=== PATIENT | female | born 1990 | race Two or more races ===

== ENCOUNTER 2016-11-28 01:34 | Inpatient (IN) | payer OTHER ==
[2016-11-28] VITALS (19 sets, daily range): BP systolic 102–129; BP diastolic 56–84
[~2016-11-28] VITALS: Ht 160 cm; Wt 98.0 kg
[~2016-11-28 01:34] MED LIST: MOTRIN800 MG PO
[2016-11-28] MEDS ORDERED: PRENATAL TABLE1 EAC3 PO (02:35)
[2016-11-28 02:50] LABS: EOSINOPHIL (%) 0.2 % (0-5); HEMATOCRIT 40.4 % (36.0-46.0); IMMATURE GRANULOCYTE (%) 1.1 % (0.0-0.7); IMMATURE GRANULOCYTE COUNT 0.2 K/uL; INSTRUMENT ABS NEUTROPHIL CT 14.5 K/uL; LYMPHOCYTE COUNT 1.6 K/uL (1.0-2.8); MCH 29.8 PG (29.0-34.0); MCHC 33.9 G/DL (30.0-36.0); MEAN PLAT.VOLUME 9.4 uM^3 (9.5-12.4); MONOCYTE (%) 5.8 % (3-12); NEUTROPHIL (%) 83.7 % (45-76); NEUTROPHIL COUNT 14.5 K/uL (1.8-6.4); PLATELET COUNT 255 K/uL (156-360); RBC DIS.WIDTH-CV 12.7 % (11.8-14.6); RBC DIS.WIDTH-SD 41.2 % (39-53); RED BLOOD COUNT 4.59 M/uL (3.80-5.20); WHITE BLOOD COUNT 17.3 K/uL (4.1-10.2)
[2016-11-29 07:57] LABS: BASOPHIL COUNT 0.1 K/uL (0-0.1); EOSINOPHIL (%) 1.8 % (0-5); EOSINOPHIL COUNT 0.2 K/uL (0-0.3); HEMATOCRIT 35.8 % (36.0-46.0); IMMATURE GRANULOCYTE (%) 1.2 % (0.0-0.7); IMMATURE GRANULOCYTE COUNT 0.1 K/uL; INSTRUMENT ABS NEUTROPHIL CT 8.7 K/uL; LYMPHOCYTE COUNT 2.1 K/uL (1.0-2.8); MCH 30.4 PG (29.0-34.0); MCHC 33.2 G/DL (30.0-36.0); MCV 91.3 FL (83-99); MEAN PLAT.VOLUME 9.1 uM^3 (9.5-12.4); MONOCYTE (%) 7.6 % (3-12); MONOCYTE COUNT 0.9 K/uL (0-0.8); NEUTROPHIL (%) 71.3 % (45-76); NEUTROPHIL COUNT 8.7 K/uL (1.8-6.4); PLATELET COUNT 241 K/uL (156-360); RBC DIS.WIDTH-CV 13.1 % (11.8-14.6); RBC DIS.WIDTH-SD 43.4 % (39-53); RED BLOOD COUNT 3.92 M/uL (3.80-5.20)
[2016-11-29 07:59] LABS: WHITE BLOOD COUNT 12.1 K/uL (4.1-10.2)
[2016-11-29 15:17] VITALS: BP 120/65
== END 2016-11-29 17:05 | disposition home or self-care (01) | DRG 774 ==
LOC: LDRP-OP 01:34 → 2WEST 01:35 → LDRP-OP 12-30 09:47
PROVIDERS: Advanced Practice Midwife
PROC: 10907ZC Drainage of Amniotic Fluid, Therapeutic from Products of Conception, Via Natural or Artificial Opening (ICD-10-PCS; principal; 2016-11-28)
PROC: 10E0XZZ Delivery of Products of Conception, External Approach (ICD-10-PCS; principal; 2016-11-28)
PROC: 3E0R3CZ (ICD-10-PCS; 2016-11-28)
PROC: 00HU33Z Insertion of Infusion Device into Spinal Canal, Percutaneous Approach (ICD-10-PCS; 2016-11-28)
DX: O99.344 Other mental disorders complicating childbirth (principal); F31.9 Bipolar disorder, unspecified; O99.214 Obesity complicating childbirth; E66.9 Obesity, unspecified; O98.32 Other infections with a predominantly sexual mode of transmission complicating childbirth; A60.04 Herpesviral vulvovaginitis; Z68.26 Body mass index [BMI] 26.0-26.9, adult; Z37.0 Single live birth; Z3A.39 39 weeks gestation of pregnancy
CPT/HCPCS: 85025; C1755; J3010; J7120